=== PATIENT | female | born 2000 | race Caucasian/White ===

== ENCOUNTER 2025-01-23 01:30 | Emergency (ER) | payer SELFPAY ==
[~2025-01-23] VITALS: Ht 152.4 cm; Wt 52.0 kg
[2025-01-23 01:38] VITALS: TEMP 36.6; O2SAT 99
[2025-01-23 03:48] VITALS: BP 117/74; PULSE 117; RESP 18
[2025-01-23] MEDS: IBUPROFEN 800MG TABLET PO ONE (03:48)
== END 2025-01-23 07:56 | disposition home or self-care (01) ==
LOC: ER 01:52
DX: M25.571 Pain in right ankle and joints of right foot (principal); M25.562 Pain in left knee; V89.2XXA Person injured in unspecified motor-vehicle accident, traffic, initial encounter; Y93.89 Activity, other specified; Y92.410 Unspecified street and highway as the place of occurrence of the external cause; Y92.89 Other specified places as the place of occurrence of the external cause; Y99.8 Other external cause status
CPT/HCPCS: 80320; 36415; 73562; 73610; 99284; Z7610; G0480